=== PATIENT | female | born 1980 | race Caucasian/White ===

== ENCOUNTER 2017-11-24 12:11 | Emergency (ER) | payer OTHER ==
[~2017-11-24 12:11] MED LIST: MMW SS; ZITH250T PO
[2017-11-24 12:25] VITALS: BP 124/63; PULSE 91; RESP 20; TEMP 98.1; O2SAT 99
--- NOTE | 2017-11-24 12:51 | PD ---
HPI Chief Complaint: Cold / Flu Symptoms Time Seen by Provider: 12:37 Travel History International Travel<30 days: No Contact w/Intl Traveler<30days: No Traveled to known affect area: No History of Present Illness HPI 37-year-old female presents to emergency department complaining of cough with yellow sputum, shortness of breath, and tightness sensation of chest for 3 days. States that she has had to sit straight up for the last 3 days because of the increased cough. Patient says that her chest tightness is located in the upper chest and does not radiate. Patient states it is mild. Patient states denies fever, chills, nausea, vomiting, diarrhea. Patient denies tobacco use. Denies chronic medical issues medication use. Patient denies recent travel, surgeries, fractures, clots, cancer. Patient states that she is a [id number] mother. She is uncertain if she has had sick contacts. PFSH Past Medical History Diminished Hearing: Yes (has bilat hearing aides) Hypertension: Yes (S/P ) ?: Not Past Surgical History Section: Yes Social History Alcohol Use: No Tobacco Use: No Substance Use: No Allergies-Medications (Allergen,Severity, Reaction): Coded Allergies: cefazolin (Unverified Allergy, Unknown, RASH, 11/24/17) Reported Meds & Prescriptions Reported Meds & Active Scripts Active Tessalon Perles (Benzonatate) 100 Mg Cap 100 Mg PO TID PRN 5 Days Review of Systems Except as stated in HPI: all other systems reviewed are Neg Physical Exam Narrative GENERAL: Well-developed well-nourished in no apparent distress, appears to be under the influence SKIN: Focused skin assessment warm/dry. HEAD: Atraumatic. Normocephalic. EYES: Pupils equal and round. No scleral icterus. No injection or drainage. ENT: No nasal bleeding or discharge. Mucous membranes pink and moist. NECK: Trachea midline. No JVD. No lymphadenopathy CARDIOVASCULAR: Regular rate and rhythm. No murmur appreciated. RESPIRATORY: No accessory muscle use. Clear to auscultation. Breath sounds equal bilaterally. No wheezes, rales, rhonchi GASTROINTESTINAL: Abdomen soft, non-tender, nondistended. MUSCULOSKELETAL: No obvious deformities. No clubbing. No cyanosis. No edema. NEUROLOGICAL: Awake and alert. No obvious cranial nerve deficits. Motor grossly within normal limits. Normal speech. PSYCHIATRIC: Appropriate mood and affect; insight and judgment normal. Data Data Last Documented VS Vital Signs Date Time Temp Pulse Resp B/P (MAP) Pulse Ox O2 Delivery O2 Flow Rate FiO2 11/24/17 13:02 98 21 11/24/17 12:25 98.1 91 20 124/63 (83) Orders Orders Chest, Single Ap (11/24/17 ) Albuterol Neb (Albuterol Neb) (11/24/17 13:00) Ed Discharge Order (11/24/17 14:42) MDM Medical Decision Making Medical Screen Exam Complete: Yes Emergency Medical Condition: Yes Differential Diagnosis Upper respiratory infection, influenza, bronchitis Narrative Course 37-year-old female presents to emergency department complaining of cough with yellow sputum, shortness of breath and tightness sensation of chest tightness for 3 days. States that she has had to sit straight up for the last 3 days because of the increased cough. Patient says that her chest tightness is located in the upper chest and does not radiate. Patient states it is mild. Patient states denies fever, chills, nausea, vomiting, diarrhea. Patient denies tobacco use. Denies chronic medical issues medication use. Patient denies recent travel, surgeries, fractures, clots, cancer. Patient states that she is a [id number] mother. Vital signs- HR 91, BP stable, SaO2 98-100% RA Upon reevaluation, pt complains of 'feeling raw' from the cough. She denies SOB but just has some pain with coughing. Albuterol nebulized with mild improvement of symptoms CXR without acute process. After speaking with the nurse today, she denied symptoms to her other than cough and congestion. After interviewing the patient further, she only complained of cough that made her 'throat raw'. I am unsure why patient gave me a different story than to the nurse. Patient did appear under the influence today but I am not convinced it was alcohol that she had ingested. She continued to deny medication or illicit drug use. She is very slow to answer my questions and a rather poor historian. Nevertheless, patient remained comfortable throughout the visit and did not appear short of breath. Her heart rate remained stable and oxygen remained 98-100% on room air. Pt will receive tessalon pearles for the cough. Advised that she should follow-up with her primary care physician for further evaluation of this cough. Advised patient to return for worsening or persistent symptoms. Diagnosis Primary Impression: Upper respiratory infection Qualified Codes: J06.9 - Acute upper respiratory infection, unspecified Referrals: [facility] Patient Instructions: General Instructions Departure Forms: Tests/Procedures Additional Instructions: Take medication as prescribed. Follow-up with her primary care physician. I recommend is a healthy do not have a primary care physician. If her symptoms persist or worsen return to the emergency department. Scripts Benzonatate (Tessalon Perles) 100 Mg Cap 100 MG PO TID Y for COUGH for 5 Days, CAP 0 Refills Prov: Emily 11/24/17 Disposition: 01 DISCHARGE HOME Condition: Stable Emily Sun Nov 24, 2017 12:51
[2017-11-24] MEDS ORDERED: RESP: ALBUTEROL 2.5 MG/3 ML NEB (SCH) INH ONE (13:00)
[2017-11-24 13:02] VITALS: O2SAT 98
--- NOTE | 2017-11-24 14:30 | RADRPT ---
EXAM DATE/TIME: 11/24/2017 14:07 [facility] COMPARISON: No previous studies available for comparison. INDICATIONS : Cough, short of breath, chest pains with cough MEDICAL HISTORY : None. SURGICAL HISTORY : None. ENCOUNTER: Initial ACUITY: 3 days PAIN SCORE: 7/10 LOCATION: Bilateral chest FINDINGS: Single AP view of the chest. The lungs are clear. Cardiomediastinal silhouette within normal limits. No evidence of pleural effusion or pneumothorax. CONCLUSION: No acute cardiopulmonary disease identified. Mikael Miramontes MD on November 24, 2017 at 14:26 Board Certified Radiologist. This report was verified electronically.
[2017-11-24] MEDS ORDERED: BENZ100 PO (14:42)
== END 2017-11-24 14:47 | disposition home or self-care (01) ==
LOC: PHEFT 12:11
DX: J06.9 Acute upper respiratory infection, unspecified (principal)
CPT/HCPCS: 71045; 94664; 99284; J7613